=== PATIENT | female | born 1965 | race Caucasian/White ===

== ENCOUNTER 2018-09-28 11:27 | Emergency (ER) | payer BC ==
[2018-09-28 11:37] VITALS: BP 103/69
--- NOTE | 2018-09-28 11:40 | UC ---
Bite Injury/Animal HPI - HPI Summary HPI Summary: 53 yo female presents with animal bite to left index finger sustained about 2 hours [employer]ERK [employer]. She tells me that she has been hearing movement within her read at home for a few today. Today she tore down a piece of drywall and reached her hand inside - she was then bitten by an animal on her left index finger. The animal ran out through the hole and she identifies it as a weasel - is now running free in her house. She was unable to catch it, but thinks it is still in her house. She came to following this incident. - History of Current Complaint Chief Complaint: UCBiteInjury Stated Complaint: ANIMAL BITE Time Seen by Provider: 09/28/18 11:40 Hx Obtained From: Patient Severity Currently: Mild Severity Initially: Mild Pain Intensity: 1 Pain Scale Used: 0-10 Numeric Onset/Duration: Sudden Onset Type of Bite: Animal Has Animal Been Immunized?: Unknown Character: Puncture - Allergies/Home Medications Allergies/Adverse Reactions: Allergies Allergy/AdvReac Type Severity Reaction Status Date / Time citalopram Allergy Mild Rash Verified 09/28/18 11:37 PMH/Surg Hx/FS Hx/Imm Hx Psychological History: Anxiety, Depression - Surgical History Surgical History: None - Family History Known Family History: Positive: None - Social History Occupation: Employed Full-time Lives: With Family Alcohol Use: Rare Substance Use Type: None Smoking Status (MU): Never Smoked Tobacco Review of Systems All Other Systems Reviewed And Are Negative: Yes Constitutional: Positive: Negative Skin: Positive: Other - Left infex finger animal bite Respiratory: Positive: Negative Cardiovascular: Positive: Negative Gastrointestinal: Positive: Negative Neurovascular: Positive: Negative Neurological: Positive: Negative Psychological: Positive: Negative Physical Exam - Summary Physical Exam Summary: GENERAL: NAD. WDWN. No pain distress. SKIN: Left index finger: one small puncture wound on dorsal aspect just distal to DIP. similar small puncture wound on finger pad. NECK: Supple. Nontender. No lymphadenopathy. CHEST: No accessory muscle use. Breathing comfortably and in no distress. CV: Pulses intact. Cap refill <2seconds MSK: FROM at left index finger NEURO: Alert. PSYCH: Age appropriate behavior. Triage Information Reviewed: Yes Vital Signs: Initial Vital Signs Temp 98.7 F 09/28/18 11:29 Pulse 67 01/15/19 11:29 Resp 18 09/28/18 11:29 BP 103/69 09/28/18 11:29 Pulse Ox 98 09/28/18 11:29 Vital Signs Reviewed: Yes Bite Injury Course/Dx - Course Course Of Treatment: Spoke with health department - they are going to send the [facility] to pt's house and try to capture the animal and test for rabies. No rabies vaccinations advised at this time. Will start her on augmentin and update her tdap today. - Differential Dx/Diagnosis Provider Diagnosis: Animal bite of finger Discharge - Sign-Out/Discharge Documenting (check all that apply): Patient Departure All imaging exams completed and their final reports reviewed: No Studies - Discharge Plan Condition: Stable Disposition: HOME Prescriptions: Amoxicillin/Clavulanate TAB* [Augmentin TAB 875*] 875 mg PO BID #14 tab Patient Education Materials: Animal Bite (ED) Referrals: Lake Mejia MD [Primary Care Provider] - Additional Instructions: If you develop a fever, shortness of breath, chest pain, new or worsening symptoms - please call your PCP or go to the ED. The health department will be in contact with you regarding potential rabies vaccination. - Billing Disposition and Condition Condition: STABLE Disposition: Home
[2018-09-28] MEDS ORDERED: Tetan/Diph/Pertus SYR(Tdap)* 0.5 ML SYR(BOOSTRIX) use SYR IM ONE (12:02)
== END 2018-09-28 12:24 | disposition home or self-care (01) ==
LOC: UCEAST 11:27
DX: S61.231A Puncture wound without foreign body of left index finger without damage to nail, initial encounter (principal); W64.XXXA Exposure to other animate mechanical forces, initial encounter; Y92.009 Unspecified place in unspecified non-institutional (private) residence as the place of occurrence of the external cause; Z23 Encounter for immunization; Z88.8 Allergy status to other drugs, medicaments and biological substances
CPT/HCPCS: 90471; 90715; 99212; G0463

== ENCOUNTER 2018-09-29 14:42 | Emergency (ER) | payer BC ==
[2018-09-29 15:18] VITALS: BP 96/84
--- NOTE | 2018-09-29 15:33 | UC ---
Bite Injury/Animal HPI - HPI Summary HPI Summary: 53 y/o female presents to the urgent care c/o a weasel bite on her left index finger yesterday. Pt reports she was seen here at the clinic yesterday and got a Tetanus vaccine and Rx Augmentin PO. The health Department was notified and they put some cages to catch the animal for observation. However they couldn't so she was told to return to the Clinic to get the Rabies vaccine. Pt reports the Weasel was inside a wall and she put her hand inside the wall and it bit her finger. Pt denies fever, VASQUEZ, muscle pain, SOB, chest pain, abdominal pain, N /V/D. - History of Current Complaint Chief Complaint: UCBiteInjury Stated Complaint: ANIMAL BITE Time Seen by Provider: 09/29/18 15:24 Hx Obtained From: Patient Hx Last Menstrual Period: na ?: No Pain Intensity: 0 - Allergies/Home Medications Allergies/Adverse Reactions: Allergies Allergy/AdvReac Type Severity Reaction Status Date / Time citalopram Allergy Mild Rash Verified 09/29/18 15:18 PMH/Surg Hx/FS Hx/Imm Hx - Surgical History Surgical History: None - Family History Known Family History: Positive: None - Social History Alcohol Use: Occasionally Substance Use Type: None Smoking Status (MU): Never Smoked Tobacco Physical Exam Vital Signs: Initial Vital Signs Temp 98.3 F 09/29/18 15:13 Pulse 68 09/29/18 15:13 Resp 18 09/29/18 15:13 BP 96/84 09/29/18 15:13 Pulse Ox 98 09/29/18 15:13 Bite Injury Course/Dx - Course Course Of Treatment: 53 y/o female presents to the urgent care c/o a weasel bite on her left index finger yesterday. Pt reports she was seen here at the clinic yesterday and got a Tetanus vaccine and Rx Augmentin PO. The health Department was notified and they put some cages to catch the animal for observation. However they couldn't so she was told to return to the Clinic to get the Rabies vaccine. Pt reports the Weasel was inside a wall and she put her hand inside the wall and it bit her finger. Pt denies fever, VASQUEZ, muscle pain, SOB, chest pain, abdominal pain, N/V/D. Hx obtained. Pt w/ a discrete break in the skin in the lateral side of the distal left 2nd phalanx - Differential Dx/Diagnosis Differential Diagnosis/HQI/PQRI: Cellulitis, Rabies Exposure, Superficial Infection Provider Diagnosis: Animal bite of finger Discharge - Sign-Out/Discharge Documenting (check all that apply): Patient Departure - D/C home All imaging exams completed and their final reports reviewed: No Studies - Discharge Plan Condition: Stable Disposition: HOME Prescriptions: Bacitracin OINTMENT* 1 applic TOPICAL BID #1 tube Patient Education Materials: Animal Bite (ED), Rabies Vaccine (ED) Referrals: Lake Mejia MD [Primary Care Provider] - 3 Days Additional Instructions: 1 Please apply Bacitracin oint over the wound area, avoid sun exposure. Cointinu taking Augmentin PO as directed 2- You were given first dose of Rabies vaccine and Rabies Immunoglobulin. Please f/u w/ health department on day 3,7,14 and 28 for for following doses. 3- If you develop fever, VASQUEZ, N/V, abdominal pain, respiratory distress, muscle pain, dizziness please return to the urgent care or take her to the ER for further management - Billing Disposition and Condition Condition: STABLE Disposition: Home
[2018-09-29] MEDS ORDERED: Rabies VIRUS VACCINE (Imovax)* 2.5 UNIT/ML 1 ML IM ONE (15:42)
[2018-09-29] MEDS ORDERED: Rabies Immune Globulin 10 ML* 150 UNIT/ML VIAL (KEDRAB) IM ONE (15:43)
[2018-09-29] MEDS ORDERED: Rabies Immune Globulin 2 ML* 150 UNITS/ML VIAL ONE (15:50)
[2018-09-29] MEDS ORDERED: Rabies Immune Globulin 2 ML* 150 UNITS/ML VIAL IM ONE (16:19)
== END 2018-09-29 16:33 | disposition home or self-care (01) ==
LOC: UCEAST 14:42
DX: S61.231D Puncture wound without foreign body of left index finger without damage to nail, subsequent encounter (principal); W64.XXXD Exposure to other animate mechanical forces, subsequent encounter; Z23 Encounter for immunization
CPT/HCPCS: 90375; 90471; 96372; 99212; G0463

== ENCOUNTER 2019-10-28 11:54 | Emergency (ER) | payer BC, MEDICAID ==
--- NOTE | 2019-10-28 14:25 | ED ---
HPI Chest Pain - HPI Summary HPI Summary: Patient is a 54 y/o F presenting to [facility] with chief complaint of upper midline CP. She states that she experienced an episode of CP on 10/26/19 and this morning , 10/28/19. Pain onset both times while she was sitting. She characterizes the pain as a tightness and similar to heartburn. CP is noted to be mild in severity currently, patient states that the pain waxes and wanes in intensity. No radiation of pain noted. SOB, calf pain/swelling, nausea, and abdominal pain are denied. She denies similar previous episodes of pain. PMHx of cardiac disease, blood clots, diabetes, HTN, GERD, and stomach ulcers are denied. She is a non-smoker and characterizes herself as a fairly active individual. Home medications and allergies are reviewed. - History of Current Complaint Chief Complaint: EDChestWallPain Time Seen by Provider: 10/28/19 14:12 Hx Obtained From: Patient Hx Last Menstrual Period: na Onset/Duration: Started Hours Ago, Still Present Current Severity: Mild Pain Intensity: 0 Pain Scale Used: 0-10 Numeric Chest Pain Location: Upper Sternal Chest Pain Radiates: No Character: Tightness, Other: - heartburn Associated Signs and Symptoms: Positive: Chest Pain. Negative: Shortness of Breath, Swelling, Nausea, Abdominal Pain, Calf Pain/Swelling, Edema - Allergy/Home Medications Allergies/Adverse Reactions: Allergies Allergy/AdvReac Type Severity Reaction Status Date / Time citalopram Allergy Mild Rash Verified 10/09/18 09:19 PMH/Surg Hx/FS Hx/Imm Hx Endocrine/Hematology History: Denies: Hx Diabetes, Hx Thyroid Disease Cardiovascular History: Denies: Hx Embolism, Hx Hypertension Respiratory History: Denies: Hx Asthma, Hx Chronic Obstructive Pulmonary Disease (COPD) GI History: Denies: Hx Gastroesophageal Reflux Disease, Hx Ulcer - Cancer History Hx Chemotherapy: No Hx Radiation Therapy: No Infectious Disease History: No Infectious Disease History: Denies: Hx Hepatitis, Hx Human Immunodeficiency Virus (HIV), Traveled Outside the [place] in Last 30 Days - Family History Known Family History: Negative: Cardiac Disease - Social History Alcohol Use: Occasionally Substance Use Type: Reports: None Smoking Status (MU): Never Smoked Tobacco Review of Systems Positive: Chest Pain Negative: Shortness Of Breath Negative: Abdominal Pain, Nausea Negative: Myalgia - calves , Edema - calves All Other Systems Reviewed And Are Negative: Yes Physical Exam - Summary Physical Exam Summary: Constitutional: Well-developed, Well-nourished, Alert. (-) Distressed Skin: Warm, Dry HENT: Normocephalic; Atraumatic Eyes: Conjunctiva normal Neck: Musculoskeletal ROM normal neck. (-) JVD, (-) Stridor, (-) Tracheal deviation Cardio: Rhythm regular, rate normal, Heart sounds normal; Intact distal pulses; The pedal pulses are 2+ and symmetric. Radial pulses are 2+ and symmetric. (-) Murmur Pulmonary/Chest wall: Effort normal. (-) Respiratory distress, (-) Wheezes, (-) Rales Abd: Soft, (-) tenderness, (-) Distension, (-) Guarding, (-) Rebound Musculoskeletal: (-) Edema Lymph: (-) Cervical adenopathy Neuro: Alert, Oriented x3 Psych: Mood and affect Normal Triage Information Reviewed: Yes Vital Signs On Initial Exam: Initial Vitals Temp Pulse Resp BP Pulse Ox 97.9 F 59 16 130/75 100 10/28/19 12:00 10/28/19 12:00 10/28/19 12:00 10/28/19 12:00 10/28/19 12:00 Vital Signs Reviewed: Yes Procedures - Sedation Patient Received Moderate/Deep Sedation with Procedure: No Diagnostics - Vital Signs Vital Signs Temp Pulse Resp BP Pulse Ox 10/28/19 12:00 97.9 F 59 16 130/75 100 - Laboratory Result Diagrams: 10/28/19 14:26 10/28/19 14:26 Lab Statement: Any lab studies that have been ordered have been reviewed, and results considered in the medical decision making process. - Radiology CXR Radiology Interpretation Completed By: Radiologist Summary of Radiographic Findings: CXR IMPRESSION: NO EVIDENCE FOR ACTIVE CARDIOPULMONARY DISEASE. THIS REPORT WAS REVIEWED BY ED PHYSICIAN. - EKG 1157 Cardiac Rate: NL - rate of 64 BPM EKG Rhythm: Sinus Rhythm Summary of EKG Findings: EKG showed NSR with rate of 64 BPM, minimal ST depression in inferior and lateral leads. ED physician has reviewed and interpreted this EKG. Chest Pain Course/Dx - Course Course Of Treatment: Patient is a 54 y/o F presenting to [facility] with chief complaint of upper midline CP. She states that she experienced an episode of CP on 10/26/19 and this morning, 10/28/19. Pain onset both times while she was sitting. She characterizes the pain as a tightness and similar to heartburn. CP is noted to be mild in severity currently, patient states that the pain waxes and wanes in intensity. No radiation of pain noted. SOB, calf pain/swelling, nausea, and abdominal pain are denied. She denies similar previous episodes of pain. PMHx of cardiac disease, blood clots, diabetes, HTN, GERD, and stomach ulcers are denied. She is a non-smoker and characterizes herself as a fairly active individual. EKG showed NSR with rate of 64 BPM, minimal ST depression in inferior and lateral leads. CXR IMPRESSION: NO EVIDENCE FOR ACTIVE CARDIOPULMONARY DISEASE. Bloodwork was obtained. First trop was negative. Rest of bloodwork was within normal limits with exception of MPV 6.2 and glucose 146. During ED course, patient received lidocaine 15 mL PO and Maalox 30 mL PO. Second troponin was negative. Patient was discharged to home and will follow up with PCP within three days. - Diagnoses Provider Diagnoses: Atypical chest pain Discharge ED - Sign-Out/Discharge Documenting (check all that apply): Patient Departure - discharge - Discharge Plan Condition: Stable Disposition: HOME Patient Education Materials: Chest Pain (ED) Referrals: Lake Mejia MD [Primary Care Provider] - 3 Days Additional Instructions: PLEASE RETURN TO ED FOR ANY NEW OR CONCERNING SYMPTOMS. PLEASE FOLLOW UP WITH YOUR PRIMARY CARE PHYSICIAN WITHIN THREE DAYS. - Billing Disposition and Condition Condition: STABLE Disposition: Home - Attestation Statements Document Initiated by Macey: Yes Documenting Scribe: DEVORAH BRICE Provider For Whom Macey is Documenting (Include Credential): RAMAKRISHNA MCCORMICK DO Scribe Attestation: IDEVORAH, scribed for RAMAKRISHNA MCCORMICK DO on 10/29/19 at 1249. Scribe Documentation Reviewed: Yes Provider Attestation: The documentation as recorded by the DEVORAH mares accurately reflects the service I personally performed and the decisions made by me, RAMAKRISHNA MCCORMICK DO Status of Scribe Document: Viewed
[2019-10-28 14:35] LABS: ABS Basophils 0.1 10^3/ul (0-0.2); ABS Eosinophils 0.1 10^3/ul (0-0.6); ABS Monocytes 0.6 10^3/ul (0-0.8); ABS Neutrophils 6.5 10^3/ul (1.5-7.7); Eosinophil % 1.6 %; Hematocrit 40 % (35-47); Hemoglobin 13.8 g/dL (12.0-16.0); Lymphocyte % 21.5 %; Mean Corpuscular HGB Conc 34 g/dL (31-36); Mean Corpuscular Hemoglobin 30 pg (27-31); Mean Corpuscular Volume 89 fL (80-97); Mean Platelet Volume 6.2 fL (7.4-10.4); Nucleated Red Blood Cells % 0.1; Platelet Count 333 10^3/uL (150-450); Red Blood Count 4.53 10^6 /uL (3.70-4.87); Red Cell Distribution Width 13 % (10-15); White Blood Count 9.4 10^3/uL (3.5-10.8)
[2019-10-28] MEDS ORDERED: Lidocaine 2% VISCOUS* 15 ML UDC PO ONE (14:35)
[2019-10-28] MEDS ORDERED: Al Hydrox/Mg Hydrox/Simet LIQ* 30 ML UDC PO ONE (14:35)
[2019-10-28 15:08] LABS: Albumin 4.4 g/dL (3.2-5.2); Calcium 9.4 mg/dL (8.6-10.3); Potassium 3.7 mmol/L (3.5-5.0); Total Bilirubin 0.4 mg/dL (0.2-1.0)
[2019-10-28 15:13] LABS: Albumin/Globulin Ratio 1.6 (1-3); BUN/Creatinine Ratio 12.5 (8-20); EGFR African American 81.3 (>60); EGFR Non-African American 67.2 (>60); Globulin 2.7 g/dL (2-4); Total Protein 7.1 g/dL (6.4-8.9)
[2019-10-28 17:07] VITALS: BP 104/71
== END 2019-10-28 17:11 | disposition home or self-care (01) ==
LOC: ED 11:54
DX: R07.89 Other chest pain (principal)
CPT/HCPCS: 36415; 71045; 80053; 83605; 84484; 85025; 93005; 99283; A9270-GY